=== PATIENT | male | born 1965 | race Two or more races ===

== ENCOUNTER 2021-06-03 23:16 | Emergency (ER) | payer OTHER ==
[~2021-06-03] VITALS: Ht 175.3 cm; Wt 118.6 kg
[2021-06-04] MEDS ORDERED: LORazepam 2 MG TABLET PO PRN (03:15)
[2021-06-04] MEDS ORDERED: ONDANSETRON HCL 4 MG/2 ML VIAL IVP PRN (03:15)
[2021-06-04] MEDS ORDERED: ACETAMINOPHEN 325 MG TABLET PO PRN (03:15)
[2021-06-04 04:30] VITALS: BP 146/100
[2021-06-04] MEDS ORDERED: HEPARIN SODIUM,PORCINE 5,000 UNITS/ML VIAL SQ SCH (08:00)
[2021-06-04] MEDS ORDERED: METOPROLOL SUCCINATE 25 MG ER TABLET PO SCH (09:00)
[2021-06-05] MEDS ORDERED: LORazepam 2 MG TABLET PO PRN (07:00)
[2021-06-07] MEDS ORDERED: LORazepam 1 MG TABLET PO PRN (07:00)
[2021-06-08] MEDS ORDERED: LORazepam 1 MG TABLET PO PRN (07:00)
== END 2021-06-04 05:27 | disposition home or self-care (01) ==
LOC: EMS 23:18
DX: U07.1 COVID-19 (principal); I10 Essential (primary) hypertension; F17.210 Nicotine dependence, cigarettes, uncomplicated
CPT/HCPCS: 71045; 99283

== ENCOUNTER 2021-06-21 17:58 | Inpatient (IN) | payer OTHER ==
[~2021-06-21] VITALS: Ht 177.8 cm; Wt 112.8 kg
[2021-06-21] MEDS ORDERED: HydrALAZINE HCL 20 MG/ML VIAL IVP ONE (18:45)
[2021-06-21 18:54] LABS: BASOPHILS % (AUTO) 0.3 % (0.0-2.0); EOSINOPHILS % (AUTO) 3.8 % (1.0-6.0); HEMATOCRIT 49.5 % (41-53); HEMOGLOBIN 16.4 g/dL (13.5-17.5); LYMPHOCYTES # (AUTO) 2.1 K/uL (1.0-4.8); LYMPHOCYTES % (AUTO) 36.2 % (22.0-44.0); MEAN CORPUSCULAR HEMOGLOBIN 28.3 pg (26.0-34.0); MEAN CORPUSCULAR HGB CONC 33.1 G/dL (31.0-37.0); MEAN CORPUSCULAR VOLUME 86 fL (80-100); MONOCYTES # (AUTO) 0.5 K/uL (0.1-1.0); MONOCYTES % (AUTO) 8.1 % (2.0-9.0); NEUTROPHILS % (AUTO) 51.6 % (40.0-70.0); PLATELET COUNT (AUTO) 221 K/uL (150-450); RED BLOOD CELL COUNT(AUTO) 5.79 MIL/uL (4.50-5.90); RED CELL DISTRIBUTION WIDTH 14.1 % (11.5-14.5)
[2021-06-21 18:57] LABS: COVID AG,FIA SOURCE NASOPHARYNGEAL
[2021-06-21 19:03] LABS: CALCIUM, TOTAL 9.2 mg/dL (8.8-10.5); CREATININE 1.38 mg/dL (0.60-1.30); POTASSIUM 4.3 mmol/L (3.5-5.1)
[2021-06-21] MEDS ORDERED: ACETAMINOPHEN 325 MG TABLET PO PRN ×2 (19:30→22:00)
[2021-06-21] MEDS ORDERED: ONDANSETRON HCL 4 MG/2 ML VIAL IVP PRN ×2 (19:30→22:00)
[2021-06-21 20:00] VITALS: BP 158/113
[2021-06-21] MEDS ORDERED: MAGNESIUM HYDROXIDE SUSPENSION 30 ML UDCUP PO PRN (22:00)
[2021-06-21] MEDS ORDERED: HYDROCODONE/ACETAMINOPHEN 5-325 MG TABLET PO PRN (22:00)
[2021-06-21] MEDS ORDERED: ZOLPIDEM TARTRATE 5 MG TABLET PO PRN (22:00)
[2021-06-21] MEDS ORDERED: IPRATROPIUM BROMIDE 0.5 MG/2.5 ML NEB SOLUTION NEB PRN (22:00)
[2021-06-21] MEDS ORDERED: BISACODYL 10 MG RECTAL RECTAL SUPPOSITORY PR PRN (22:00)
[2021-06-21] MEDS ORDERED: MORPHINE SULFATE 2 MG/ML SYRINGE IVP PRN (22:00)
[2021-06-21] MEDS ORDERED: ALBUTEROL SULFATE 2.5 MG/0.5 ML NEB SOLUTION NEB PRN (22:00)
[2021-06-22] MEDS: NITROGLYCERIN 2% (1 GM=INCH) PACKET TP SCH ×4 (00:39→18:00)
[2021-06-22] MEDS: HEPARIN SODIUM,PORCINE 5,000 UNITS/ML VIAL SQ SCH ×4 (00:40→23:59)
[2021-06-22 01:03] VITALS: BP 149/109
[2021-06-22] MEDS ORDERED: SODIUM CHLORIDE 0.9% 500 ML IV ONE ×3 (01:22→03:15)
[2021-06-22] MEDS ORDERED: SODIUM CHLORIDE 0.9% 1,000 ML ONE (01:24)
[2021-06-22 01:41] LABS: GLUCOMETER DEV NAME(LOC) 5S.1B; GLUCOSE,POINT OF CARE 102 MG/DL (70-110)
[2021-06-22 02:33] VITALS: BP 157/80
[2021-06-22] MEDS ORDERED: SODIUM CHLORIDE 0.9% 1,000 ML IV ONE (03:15)
[2021-06-22 06:56] VITALS: BP 101/69
[2021-06-22 08:06] VITALS: BP 149/92
[2021-06-22 08:50] LABS: BASOPHILS % (AUTO) 0.2 % (0.0-2.0); HEMATOCRIT 47.2 % (41-53); HEMOGLOBIN 15.7 g/dL (13.5-17.5); LYMPHOCYTES # (AUTO) 2.2 K/uL (1.0-4.8); LYMPHOCYTES % (AUTO) 30.3 % (22.0-44.0); MEAN CORPUSCULAR HEMOGLOBIN 28.6 pg (26.0-34.0); MEAN CORPUSCULAR HGB CONC 33.4 G/dL (31.0-37.0); MEAN CORPUSCULAR VOLUME 86 fL (80-100); MONOCYTES # (AUTO) 0.4 K/uL (0.1-1.0); NEUTROPHILS # (AUTO) 4.5 K/uL (1.8-7.7); NEUTROPHILS % (AUTO) 61.5 % (40.0-70.0); PLATELET COUNT (AUTO) 223 K/uL (150-450); RED BLOOD CELL COUNT(AUTO) 5.51 MIL/uL (4.50-5.90)
[2021-06-22] MEDS: ASPIRIN 81 MG CHEWABLE TABLET PO SCH (08:55)
[2021-06-22] MEDS: PANTOPRAZOLE SODIUM 40 MG DR TABLET PO SCH (08:55)
[2021-06-22] MEDS: CARVEDILOL 6.25 MG TABLET PO SCH ×2 (08:55→20:24)
[2021-06-22 09:12] LABS: ALBUMIN 3.8 g/dL (3.4-5.0); BILIRUBIN,TOTAL 1.1 mg/dL (0.1-1.0); CALCIUM, TOTAL 8.8 mg/dL (8.8-10.5); CHOL/HDL RATIO 4.5 (4.2-7.3); CREATININE 1.42 mg/dL (0.60-1.30); POTASSIUM 4.5 mmol/L (3.5-5.1); TOTAL PROTEIN, SERUM 7.1 g/dL (6.4-8.2)
[2021-06-22 15:42] VITALS: BP 114/77
[2021-06-22 19:35] VITALS: BP 137/68
[2021-06-22 23:20] LABS: APPEARANCE,URINE CLEAR (CLEAR); BILIRUBIN,URINE NEGATIVE (NEGATIVE); GLUCOSE, URINE (UA) NEGATIVE (NEGATIVE); KETONES,URINE NEGATIVE (NEGATIVE); LEUKOCYTE ESTERASE ,URINE TRACE (NEGATIVE); NITRATE,URINE NEGATIVE (NEGATIVE); OCCULT BLOOD,URINE NEGATIVE (NEGATIVE); PH,URINE 5.5 (5.0-8.0); PROTEIN,URINE NEGATIVE (NEGATIVE); UROBILINOGEN,URINE 0.2 mg/dL (<=1.0)
[2021-06-22 23:43] LABS: BACTERIA,URINE Few /HPF (None Seen); RBC,URINE 0-2 /HPF (0-2)
[2021-06-23 00:10] VITALS: BP 146/96
[2021-06-23 03:45] VITALS: BP 127/77
[2021-06-23] MEDS ORDERED: PNEUMOCOCCAL VACCINE POLYVALENT 0.5 ML VIAL [PPSV23] IM. ONE (05:15)
[2021-06-23 07:19] LABS: BASOPHILS % (AUTO) 0.5 % (0.0-2.0); EOSINOPHILS % (AUTO) 4.3 % (1.0-6.0); HEMATOCRIT 45.5 % (41-53); HEMOGLOBIN 15.1 g/dL (13.5-17.5); LYMPHOCYTES # (AUTO) 1.9 K/uL (1.0-4.8); LYMPHOCYTES % (AUTO) 35.5 % (22.0-44.0); MEAN CORPUSCULAR HEMOGLOBIN 28.5 pg (26.0-34.0); MEAN CORPUSCULAR HGB CONC 33.1 G/dL (31.0-37.0); MEAN CORPUSCULAR VOLUME 86 fL (80-100); MONOCYTES # (AUTO) 0.5 K/uL (0.1-1.0); MONOCYTES % (AUTO) 9.2 % (2.0-9.0); NEUTROPHILS # (AUTO) 2.6 K/uL (1.8-7.7); NEUTROPHILS % (AUTO) 50.5 % (40.0-70.0); PLATELET COUNT (AUTO) 192 K/uL (150-450); RED BLOOD CELL COUNT(AUTO) 5.29 MIL/uL (4.50-5.90); RED CELL DISTRIBUTION WIDTH 13.8 % (11.5-14.5)
[2021-06-23 07:37] LABS: ALBUMIN 3.5 g/dL (3.4-5.0); BILIRUBIN,TOTAL 1.1 mg/dL (0.1-1.0); CALCIUM, TOTAL 8.8 mg/dL (8.8-10.5); CREATININE 1.32 mg/dL (0.60-1.30); POTASSIUM 4.7 mmol/L (3.5-5.1); TOTAL PROTEIN, SERUM 6.7 g/dL (6.4-8.2)
[2021-06-23] MEDS: NITROGLYCERIN 2% (1 GM=INCH) PACKET TP SCH ×3 (08:00→18:00)
[2021-06-23] MEDS: PANTOPRAZOLE SODIUM 40 MG DR TABLET PO SCH (08:40)
[2021-06-23] MEDS: SODIUM CHLORIDE 0.45% 1,000 ML IV SCH ×2 (08:41→20:40)
[2021-06-23] MEDS: ASPIRIN 81 MG CHEWABLE TABLET PO SCH (08:41)
[2021-06-23] MEDS: HEPARIN SODIUM,PORCINE 5,000 UNITS/ML VIAL SQ SCH (08:41)
[2021-06-23] MEDS: CARVEDILOL 6.25 MG TABLET PO SCH ×2 (09:38→20:29)
[2021-06-23 09:43] VITALS: BP 153/98
[2021-06-23] MEDS ORDERED: SODIUM CHLORIDE 0.9% 100 ML ONE (10:05)
[2021-06-23] MEDS ORDERED: IOHEXOL 350 MG/ML 150 ML VIAL ONE (10:05)
[2021-06-23 12:20] VITALS: BP 134/78
[2021-06-23] MEDS ORDERED: HEPARIN SODIUM,PORCINE 5,000 UNITS/ML VIAL IVP PRN ×2 (15:30)
[2021-06-23] MEDS ORDERED: HEPARIN SODIUM,PORCINE 5,000 UNITS/ML VIAL IVP ONE (15:30)
[2021-06-23 16:04] LABS: INR 1.1 (0.9-1.1); PROTHROMBIN TIME 11.2 SEC (9.4-11.6)
[2021-06-23] MEDS: HEPARIN SODIUM 25000 UNITS/D5W 250 ML IV PRN (16:59)
[2021-06-23 17:32] VITALS: BP 136/69
[2021-06-23 19:55] VITALS: BP 156/97
[2021-06-24 00:14] VITALS: BP 136/86
[2021-06-24 05:42] VITALS: BP 136/84
[2021-06-24 07:15] LABS: BASOPHILS % (AUTO) 0.6 % (0.0-2.0); HEMATOCRIT 45.4 % (41-53); HEMOGLOBIN 15.2 g/dL (13.5-17.5); LYMPHOCYTES # (AUTO) 2.3 K/uL (1.0-4.8); LYMPHOCYTES % (AUTO) 34.1 % (22.0-44.0); MEAN CORPUSCULAR HEMOGLOBIN 28.7 pg (26.0-34.0); MEAN CORPUSCULAR HGB CONC 33.4 G/dL (31.0-37.0); MEAN CORPUSCULAR VOLUME 86 fL (80-100); MONOCYTES # (AUTO) 0.6 K/uL (0.1-1.0); MONOCYTES % (AUTO) 8.9 % (2.0-9.0); NEUTROPHILS # (AUTO) 3.5 K/uL (1.8-7.7); NEUTROPHILS % (AUTO) 52.4 % (40.0-70.0); PLATELET COUNT (AUTO) 191 K/uL (150-450); RED BLOOD CELL COUNT(AUTO) 5.29 MIL/uL (4.50-5.90); RED CELL DISTRIBUTION WIDTH 14.1 % (11.5-14.5)
[2021-06-24 08:02] LABS: ALBUMIN 3.6 g/dL (3.4-5.0); CALCIUM, TOTAL 9.1 mg/dL (8.8-10.5); CREATININE 1.35 mg/dL (0.60-1.30); TOTAL PROTEIN, SERUM 6.8 g/dL (6.4-8.2)
[2021-06-24] MEDS: PANTOPRAZOLE SODIUM 40 MG DR TABLET PO SCH (08:20)
[2021-06-24] MEDS: ASPIRIN 81 MG CHEWABLE TABLET PO SCH (08:20)
[2021-06-24] MEDS: HEPARIN SODIUM 25000 UNITS/D5W 250 ML IV PRN ×3 (08:53→16:13)
[2021-06-24] MEDS: CARVEDILOL 6.25 MG TABLET PO SCH (08:53)
[2021-06-24 10:37] VITALS: BP 154/100
[2021-06-24] MEDS: SODIUM CHLORIDE 0.45% 1,000 ML IV SCH (11:28)
[2021-06-24] MEDS: NITROGLYCERIN 2% (1 GM=INCH) PACKET TP SCH ×2 (12:00→18:00)
[2021-06-24 19:30] VITALS: BP 105/73
[2021-06-25] MEDS: NITROGLYCERIN 2% (1 GM=INCH) PACKET TP SCH
[2021-06-25 00:08] VITALS: BP 118/69
[2021-06-25 04:36] VITALS: BP 131/74
[2021-06-25] MEDS: SODIUM CHLORIDE 0.45% 1,000 ML IV SCH (05:29)
[2021-06-25 06:08] LABS: BASOPHILS % (AUTO) 0.4 % (0.0-2.0); EOSINOPHILS % (AUTO) 4.7 % (1.0-6.0); HEMATOCRIT 44.8 % (41-53); LYMPHOCYTES % (AUTO) 34.6 % (22.0-44.0); MEAN CORPUSCULAR HEMOGLOBIN 28.6 pg (26.0-34.0); MEAN CORPUSCULAR HGB CONC 33.5 G/dL (31.0-37.0); MEAN CORPUSCULAR VOLUME 85 fL (80-100); MONOCYTES # (AUTO) 0.5 K/uL (0.1-1.0); MONOCYTES % (AUTO) 8.3 % (2.0-9.0); NEUTROPHILS # (AUTO) 2.9 K/uL (1.8-7.7); PLATELET COUNT (AUTO) 181 K/uL (150-450); RED BLOOD CELL COUNT(AUTO) 5.26 MIL/uL (4.50-5.90); RED CELL DISTRIBUTION WIDTH 14.1 % (11.5-14.5)
[2021-06-25 06:27] LABS: ALBUMIN 3.5 g/dL (3.4-5.0); BILIRUBIN,TOTAL 0.8 mg/dL (0.1-1.0); CALCIUM, TOTAL 8.9 mg/dL (8.8-10.5); CREATININE 1.37 mg/dL (0.60-1.30); POTASSIUM 4.3 mmol/L (3.5-5.1); TOTAL PROTEIN, SERUM 6.7 g/dL (6.4-8.2)
[2021-06-25 07:50] VITALS: BP 129/76
[2021-06-25] MEDS: ASPIRIN 81 MG CHEWABLE TABLET PO SCH (08:11)
[2021-06-25] MEDS: APIXABAN 5 MG TABLET PO SCH ×2 (08:11→20:15)
[2021-06-25] MEDS: PANTOPRAZOLE SODIUM 40 MG DR TABLET PO SCH (08:11)
[2021-06-25 11:03] VITALS: BP 133/92
[2021-06-25 11:22] LABS: CHOL/HDL RATIO 4.4 (4.2-7.3)
[2021-06-25 15:52] VITALS: BP 114/75
[2021-06-25 20:31] VITALS: BP 142/89
[2021-06-26 00:31] VITALS: BP 110/72
[2021-06-26 04:40] VITALS: BP 116/71
[2021-06-26 06:40] LABS: BASOPHILS % (AUTO) 0.5 % (0.0-2.0); EOSINOPHILS % (AUTO) 5.3 % (1.0-6.0); HEMATOCRIT 47.7 % (41-53); HEMOGLOBIN 16.1 g/dL (13.5-17.5); LYMPHOCYTES # (AUTO) 1.6 K/uL (1.0-4.8); MEAN CORPUSCULAR HEMOGLOBIN 28.9 pg (26.0-34.0); MEAN CORPUSCULAR HGB CONC 33.7 G/dL (31.0-37.0); MEAN CORPUSCULAR VOLUME 86 fL (80-100); MONOCYTES # (AUTO) 0.5 K/uL (0.1-1.0); MONOCYTES % (AUTO) 9.2 % (2.0-9.0); NEUTROPHILS # (AUTO) 3.2 K/uL (1.8-7.7); PLATELET COUNT (AUTO) 188 K/uL (150-450); RED BLOOD CELL COUNT(AUTO) 5.57 MIL/uL (4.50-5.90); RED CELL DISTRIBUTION WIDTH 13.8 % (11.5-14.5)
[2021-06-26 07:25] LABS: ALBUMIN 3.8 g/dL (3.4-5.0); CALCIUM, TOTAL 9.3 mg/dL (8.8-10.5); CREATININE 1.41 mg/dL (0.60-1.30); TOTAL PROTEIN, SERUM 7.3 g/dL (6.4-8.2)
[2021-06-26] MEDS: APIXABAN 5 MG TABLET PO SCH (08:24)
[2021-06-26] MEDS: ASPIRIN 81 MG CHEWABLE TABLET PO SCH (08:24)
[2021-06-26] MEDS: PANTOPRAZOLE SODIUM 40 MG DR TABLET PO SCH (08:24)
[2021-06-26 08:31] VITALS: BP 118/71
[2021-06-26] MEDS ORDERED: ATOR10TA84 PO (09:43)
[2021-06-26] MEDS ORDERED: APIX5TAB PO (09:43)
[2021-06-26] MEDS ORDERED: ASPI-1450 PO (09:44)
[2021-06-26] MEDS ORDERED: PANT-31 PO (09:45)
[2021-06-26] MEDS ORDERED: ACET-2247 PO (09:45)
== END 2021-06-26 12:40 | DRG 176 ==
LOC: EMS 18:11 → 5N 19:52
PROVIDERS: ADMIT Hospitalist; ATTEND Hospitalist
DX: I26.99 Other pulmonary embolism without acute cor pulmonale (principal); K92.1 Melena; Z20.822 Contact with and (suspected) exposure to COVID-19; I10 Essential (primary) hypertension; F17.210 Nicotine dependence, cigarettes, uncomplicated; I25.10 Atherosclerotic heart disease of native coronary artery without angina pectoris; G47.30 Sleep apnea, unspecified; R07.89 Other chest pain; R31.9 Hematuria, unspecified; Z86.16 Personal history of COVID-19; Z28.21 Immunization not carried out because of patient refusal; Z71.6 Tobacco abuse counseling
CPT/HCPCS: 71045; 71260; 80048; 80053; 80061; 81001; 82962; 84484; 85025; 85610; 85730; 93005; 93306; 99285; J0360; J1644; J7030; J7040; J7050; Q9967; 36415-L1; 36415-TC